=== PATIENT | male | born 1955 | race African-American/Black ===

== ENCOUNTER 2021-06-09 05:19 | Emergency (ER) | payer BC, OTHER ==
[~2021-06-09] VITALS: Ht 180.3 cm; Wt 123.0 kg
[~2021-06-09 05:19] MED LIST: ASPI-1406; ATEN-42; DOCU100C57; FURO-151; GEMF600T; HYDR12.529; KETO200S3; LANC-335; LORA10CA; MELO-106; MELO15TA13; METH500T; NIFE30TA94; OLME20TA13; PROT40; SIMV40TA2; SITA1TAB8; VIAG100; [UNRECOGNIZED DRUG - CODE]
[2021-06-09 06:32] LABS: EOSINOPHILS % 3.3 % (0.0-5.0); HEMATOCRIT. 37.9 % (42.0-52.0); HEMOGLOBIN. 12.8 g/dL (14.0-18.0); MEAN CORPUSCULAR HEMOGLOBIN 31.4 pg (28.0-32.0); MEAN PLATELET VOLUME 6.7 fl (7.4-10.4); MONOCYTES % 5.3 % (2.0-8.0); NEUTROPHILS % 70.4 % (40.0-76.0); PLATELET 450 x1000/uL (130-400); RED BLOOD CELL COUNT 4.08 mill/uL (4.7-6.1); RED CELL DISTRIBUTION WIDTH 13.8 % (11.6-14.6)
[2021-06-09 06:36] LABS: CHLORIDE 98 mEq/L (98-107)
[2021-06-09 08:49] VITALS: BP 114/61
== END 2021-06-09 09:00 | disposition home or self-care (01) ==
LOC: ER 05:19
DX: E11.621 Type 2 diabetes mellitus with foot ulcer (principal); L97.529 Non-pressure chronic ulcer of other part of left foot with unspecified severity; Z79.4 Long term (current) use of insulin
CPT/HCPCS: 36415; 73630; 80053; 85025; 99284

== ENCOUNTER 2023-10-31 11:47 | Inpatient (IN) | payer MEDICARE, BC ==
[~2023-10-31] VITALS: Ht 181.6 cm; Wt 128.8 kg
[~2023-10-31 11:47] MED LIST changes: +ALLO100T PO; +ASCO500C18 PO; -ASPI-1406; -ATEN-42; +ATOR40TA70 PO; +COR25 PO; +DAPA10TA PO; -DOCU100C57; +EZET10TA81 PO; -FURO-151; +FURO-151 PO; -GEMF600T; +GLUC-113 PO; -HYDR12.529; -KETO200S3; -LANC-335; -LORA10CA; +LOSA25TA26 PO; -MELO-106; -MELO15TA13; +METF-414 PO; -METH500T; -NIFE30TA94; -OLME20TA13; +OMEG100017 PO; -PROT40; +RIVA20TA PO; -SIMV40TA2; -SITA1TAB8; +SPIR25TA6 PO; +TIRZ2.5P; -VIAG100; -[UNRECOGNIZED DRUG - CODE]
[2023-10-31 11:50] VITALS: O2SAT 98
[2023-10-31] MEDS: DILTIAZEM HCL 5MG/ML 5ML VIAL IV ONE (12:25)
[2023-10-31] MEDS: DILTIAZEM HCL 60MG TABLET PO ONE (12:34)
[2023-10-31 12:55] LABS: BASOPHILS % 0.6 % (0.0-2.0); HEMATOCRIT. 28.7 % (42.0-52.0); HEMOGLOBIN. 9.2 g/dL (14.0-18.0); LYMPHOCYTES % 12.9 % (20.0-50.0); MEAN CORPUSCULAR HEMOGLOBIN 30.2 pg (28.0-32.0); MEAN CORPUSCULAR VOLUME 94.4 fL (80.0-94.0); MONOCYTES % 11.5 % (2.0-8.0); PLATELET 455 x1000/uL (130-400); RED BLOOD CELL COUNT 3.04 mill/uL (4.7-6.1); RED CELL DISTRIBUTION WIDTH 21.5 % (11.6-14.6); WHITE BLOOD COUNT 7.6 x1000/uL (4.5-11.0)
[2023-10-31 13:04] LABS: ALANINE AMINOTRANSFERASE 97 IU/L (10-49); ALBUMIN 3.1 g/dL (3.2-4.8); ASPARTATE AMINOTRANSFERASE 223 IU/L (<34); BILIRUBIN TOTAL 4.2 mg/dL (0.1-1.0); CALCIUM 8.5 mg/dL (8.7-10.4); CARBON DIOXIDE 17 mEq/L (21-32); CHLORIDE 98 mEq/L (98-107); GLUCOSE 218 mg/dL (70-105); POTASSIUM 5.1 mEq/L (3.5-5.1); PROTEIN TOTAL 6.7 g/dL (6.0-8.3); SODIUM 126 mEq/L (136-145); TROPONIN I HIGH SENSITIVITY 29 ng/L (3.0-53); UREA NITROGEN BLOOD 48 mg/dL (9-23)
[2023-10-31 13:28] LABS: CREATININE 1.3 mg/dL (0.6-1.3)
[2023-10-31] MEDS ORDERED: NALOXONE HCL 0.4MG/ML VIAL IV PRN (13:45)
[2023-10-31] MEDS: DIGOXIN 500MCG/2ML AMP IV NR (13:57)
[2023-10-31] MEDS: ENOXAPARIN 40MG/0.4ML SYR SUBCUT SCH (13:58)
[2023-10-31] MEDS ORDERED: DILTIAZEM HCL 125 MG in DEXT 5% WATER 100 ML IV SCH (14:00)
[2023-10-31] MEDS: DILTIAZEM HCL 125 MG in DEXT 5% WATER 100 ML IV SCH (14:00)
[2023-10-31] MEDS: THIAMINE HCL 100MG TABLET PO SCH (14:10)
[2023-10-31] MEDS: FERROUS SULFATE 325MG TABLET PO SCH (14:20)
[2023-10-31 14:50] LABS: AMMONIA 33 uMol/L (<32)
[2023-10-31 14:51] LABS: CREATINE KINASE MB FRACTION 2.9 ng/mL (0.5-3.6)
[2023-10-31] MEDS: MORPHINE SULFATE 2 MG/ML CPJ (NOT FOR IM USE) IV PRN (15:26)
[2023-11-01] VITALS (12 sets, daily range): BP systolic 108–141; BP diastolic 59–97; PULSE 102–126; RESP 11–35; TEMP 98.2–98.9
[2023-11-01 04:24] LABS: CLARITY URINE TURBID (CLEAR); COLOR URINE DARK YELLOW (YELLOW); GLUCOSE URINE TRACE (NEGATIVE); KETONES URINE NEGATIVE (NEGATIVE); LEUKOCYTE ESTERASE URINE NEGATIVE (NEGATIVE); NITRITE URINE NEGATIVE (NEGATIVE); OCCULT BLOOD URINE NEGATIVE (NEGATIVE); PROTEIN URINE 1+ (NEGATIVE); SPECIFIC GRAVITY URINE 1.017 (1.005-1.030)
[2023-11-01 04:42] LABS: *AMPHETAMINES SCREEN URINE NEGATIVE (NEGATIVE); *BARBITURATES SCREEN URINE NEGATIVE (NEGATIVE); *BENZODIAZEPINES SCREEN URINE NEGATIVE (NEGATIVE); *COCAINE SCREEN URINE NEGATIVE (NEGATIVE); CANNABINOID URINE SCREEN NEGATIVE (NEGATIVE); ECSTASY MDMA SCREEN URINE NEGATIVE (NEGATIVE); METHADONE URINE SCREEN Neg (NEGATIVE); OPIATES URINE SCREEN PRESUMPTIVE POSITIVE (NEGATIVE); PHENCYCLIDINE URINE SCREEN NEGATIVE (NEGATIVE)
[2023-11-01 04:52] LABS: WBC URINE NONE SEEN /hpf (0-2)
[2023-11-01 04:53] LABS: AMORPHOUS SEDIMENT URINE 1+ /lpf; BACTERIA URINE 1+; RBC URINE NONE SEEN /hpf (0-2); SQUAMOUS EPITHELIAL CELL URINE NONE SEEN /lpf (RARE/1+)
[2023-11-01 06:57] LABS: BASOPHILS % 0.4 % (0.0-2.0); EOSINOPHILS % 1.1 % (0.0-5.0); HEMATOCRIT. 27.4 % (42.0-52.0); LYMPHOCYTES % 19.9 % (20.0-50.0); MEAN CORPUSCULAR HEMOGLOBIN 30.9 pg (28.0-32.0); MEAN CORPUSCULAR HGB CONC 32.9 g/dL (31.0-37.0); MEAN CORPUSCULAR VOLUME 93.7 fL (80.0-94.0); MEAN PLATELET VOLUME 7.1 fl (7.4-10.4); NEUTROPHILS % 68.6 % (40.0-76.0); PLATELET 444 x1000/uL (130-400); RED BLOOD CELL COUNT 2.92 mill/uL (4.7-6.1); RED CELL DISTRIBUTION WIDTH 21.3 % (11.6-14.6); WHITE BLOOD COUNT 8.2 x1000/uL (4.5-11.0)
[2023-11-01 06:58] LABS: ALANINE AMINOTRANSFERASE 111 IU/L (10-49); ALBUMIN 3.1 g/dL (3.2-4.8); ASPARTATE AMINOTRANSFERASE 321 IU/L (<34); BILIRUBIN DIRECT 3.6 mg/dL (<=3.0); BILIRUBIN TOTAL 4.6 mg/dL (0.1-1.0); CALCIUM 8.7 mg/dL (8.7-10.4); CARBON DIOXIDE 16 mEq/L (21-32); CHLORIDE 100 mEq/L (98-107); CREATININE 1.2 mg/dL (0.6-1.3); GLUCOSE 172 mg/dL (70-105); PHOSPHORUS 3.9 mg/dL (2.5-4.9); POTASSIUM 5.2 mEq/L (3.5-5.1); PROTEIN TOTAL 6.8 g/dL (6.0-8.3); SODIUM 127 mEq/L (136-145); THYROID STIMULATING HORMONE 3.71 uIU/mL (0.55-4.78); TROPONIN I HIGH SENSITIVITY 34 ng/L (3.0-53); UREA NITROGEN BLOOD 49 mg/dL (9-23)
[2023-11-01 07:15] LABS: DIFFERENTIAL COMMENT 1
[2023-11-01 07:50] LABS: HEPATITIS B SURFACE ANTIGEN NEGATIVE (Negative); HEPATITIS C AB NON REACTIVE (Neg) (Negative)
[2023-11-01] MEDS: SODIUM POLYSTYRENE SULFONATE 15 G/60 ML BOT PO NR (10:18)
[2023-11-01] MEDS: ASPIRIN 81MG EC TABLET PO SCH (10:19)
[2023-11-01] MEDS: DILTIAZEM HCL 60MG TABLET PO SCH (13:26)
[2023-11-01] MEDS: DILTIAZEM HCL 125 MG in DEXT 5% WATER 100 ML IV SCH (14:41)
[2023-11-01 16:20] LABS: CREATINE KINASE 805 IU/L (46-171); CREATINE KINASE MB FRACTION 2.4 ng/mL (0.5-3.6); TROPONIN I HIGH SENSITIVITY 27 ng/L (3.0-53)
[2023-11-02] VITALS (14 sets, daily range): BP systolic 95–132; BP diastolic 61–98; PULSE 83–118; RESP 19–34; TEMP 97–98.5
[2023-11-02 07:25] LABS: CALCIUM 8.4 mg/dL (8.7-10.4); CARBON DIOXIDE 20 mEq/L (21-32); CHLORIDE 97 mEq/L (98-107); CREATININE 1.2 mg/dL (0.6-1.3); GLUCOSE 181 mg/dL (70-105); POTASSIUM 4.6 mEq/L (3.5-5.1); SODIUM 127 mEq/L (136-145); UREA NITROGEN BLOOD 48 mg/dL (9-23)
[2023-11-02 07:41] LABS: HEMATOCRIT. 27.4 % (42.0-52.0); HEMOGLOBIN. 9.1 g/dL (14.0-18.0); MEAN CORPUSCULAR HEMOGLOBIN 30.7 pg (28.0-32.0); MEAN CORPUSCULAR HGB CONC 33.4 g/dL (31.0-37.0); MEAN CORPUSCULAR VOLUME 91.8 fL (80.0-94.0); MEAN PLATELET VOLUME 7.4 fl (7.4-10.4); PLATELET 391 x1000/uL (130-400); RED BLOOD CELL COUNT 2.98 mill/uL (4.7-6.1); RED CELL DISTRIBUTION WIDTH 21.5 % (11.6-14.6); WHITE BLOOD COUNT 8.1 x1000/uL (4.5-11.0)
[2023-11-02 08:57] LABS: DIFFERENTIAL COMMENT 1
[2023-11-02] MEDS: DILTIAZEM HCL 30MG TABLET PO SCH (14:00)
[2023-11-02 22:42] LABS: ANISOCYTOSIS 2+; PLATELET ESTIMATE NORMAL
[2023-11-03] VITALS (12 sets, daily range): BP systolic 97–125; BP diastolic 59–92; PULSE 80–126; RESP 14–26; TEMP 97–97.8
[2023-11-03 00:26] LABS: SODIUM URINE RANDOM < 10 mEq/L
[2023-11-03 05:45] LABS: HEMATOCRIT. 27.6 % (42.0-52.0); HEMOGLOBIN. 9.1 g/dL (14.0-18.0); MEAN CORPUSCULAR HEMOGLOBIN 30.1 pg (28.0-32.0); MEAN CORPUSCULAR HGB CONC 33.1 g/dL (31.0-37.0); MEAN CORPUSCULAR VOLUME 90.9 fL (80.0-94.0); PLATELET 375 x1000/uL (130-400); RED BLOOD CELL COUNT 3.04 mill/uL (4.7-6.1); RED CELL DISTRIBUTION WIDTH 21.4 % (11.6-14.6); WHITE BLOOD COUNT 8.4 x1000/uL (4.5-11.0)
[2023-11-03 06:02] LABS: CALCIUM 8.3 mg/dL (8.7-10.4); CARBON DIOXIDE 20 mEq/L (21-32); CHLORIDE 97 mEq/L (98-107); CREATININE 1.1 mg/dL (0.6-1.3); GLUCOSE 170 mg/dL (70-105); POTASSIUM 4.5 mEq/L (3.5-5.1); SODIUM 127 mEq/L (136-145); UREA NITROGEN BLOOD 49 mg/dL (9-23)
[2023-11-03 06:53] LABS: DIFFERENTIAL COMMENT 1
[2023-11-03] MEDS: ACETAMINOPHEN 325MG TABLET PO PRN (09:55)
[2023-11-03] MEDS: DILTIAZEM HCL 60MG TABLET PO SCH (13:28)
[2023-11-03 18:55] LABS: HEPATITIS A AB IGM NEGATIVE (Negative); HEPATITIS B CORE AB IGM NEGATIVE (Negative); HEPATITIS B SURFACE ANTIGEN NEGATIVE (Negative); HEPATITIS C AB NON REACTIVE (Neg) (Negative)
[2023-11-04] VITALS (12 sets, daily range): BP systolic 103–125; BP diastolic 62–94; PULSE 79–98; RESP 16–31; TEMP 97–98.2
[2023-11-04] MEDS ORDERED: MAGNESIUM/ALUMINUM HYDROXIDE/SIMETHICONE 30ML UDC PO PRN (10:45)
[2023-11-04] MEDS ORDERED: NON FORMULARY PATIENT HOME MED XX SCH (11:30)
[2023-11-04] MEDS: PANTOPRAZOLE 40MG DR TABLET PO SCH (11:30)
[2023-11-04] MEDS: BISACODYL 5MG TABLET PO SCH (11:30)
[2023-11-04] MEDS: SODIUM CHLORIDE 0.9% 1,000 ML IV SCH (11:31)
[2023-11-04 14:31] LABS: PLATELET ESTIMATE NORMAL
[2023-11-04 14:33] LABS: ANISOCYTOSIS 1+
[2023-11-04] MEDS: LIDOCAINE 5% PATCH TOP SCH (15:25)
[2023-11-04] MEDS: LACTULOSE 20G/30ML UDC PO SCH (15:28)
[2023-11-04] MEDS: DOCUSATE SODIUM 100MG CAPSULE PO SCH (17:02)
[2023-11-04 22:38] LABS: IRON 37 ug/dL (65-175); TOTAL IRON BINDING CAPACITY 486 ug/dl (250-425)
[2023-11-05] VITALS (12 sets, daily range): BP systolic 109–148; BP diastolic 66–107; PULSE 85–108; RESP 16–37; TEMP 97.5–97.9
[2023-11-05 07:19] LABS: AMMONIA 32 uMol/L (<32)
[2023-11-05 07:45] LABS: INR 1.4; PARTIAL THROMBOPLASTIN TIME 35.4 sec (23.4-31.0); PROTHROMBIN TIME 14.7 sec (9.6-11.0)
[2023-11-05 07:51] LABS: ALANINE AMINOTRANSFERASE 84 IU/L (10-49); ALBUMIN 3.2 g/dL (3.2-4.8); ASPARTATE AMINOTRANSFERASE 158 IU/L (<34); BILIRUBIN DIRECT 4.4 mg/dL (<=3.0); BILIRUBIN TOTAL 5.4 mg/dL (0.1-1.0); IRON 29 ug/dL (65-175); PROTEIN TOTAL 6.7 g/dL (6.0-8.3); THYROID STIMULATING HORMONE 2.81 uIU/mL (0.55-4.78); TOTAL IRON BINDING CAPACITY 297 ug/dl (250-425)
[2023-11-05] MEDS: POLYETHYLENE GLYCOL 3350 (17GM) 1 DOSE PACK PO SCH (08:19)
[2023-11-05] MEDS: THIAMINE HCL 100MG TABLET PO SCH (08:21)
[2023-11-05] MEDS: FOLIC ACID 1MG TABLET PO SCH (08:21)
[2023-11-05 08:40] LABS: FERRITIN 1331 ng/mL (22-322); FOLIC ACID (FOLATE) SERUM 11.74 ng/mL (>5.38)
[2023-11-05 08:56] LABS: VITAMIN B12 SERUM > 2000 pg/mL (211-911)
[2023-11-05] MEDS: ONDANSETRON HCL 4MG/2ML INJ IV PRN (21:55)
[2023-11-06] VITALS (12 sets, daily range): BP systolic 99–148; BP diastolic 39–104; PULSE 82–103; RESP 13–38; TEMP 97–97.7
[2023-11-06 05:52] LABS: INR 1.4; PROTHROMBIN TIME 14.8 sec (9.6-11.0)
[2023-11-06 06:00] LABS: ALANINE AMINOTRANSFERASE 77 IU/L (10-49); ALBUMIN 3.1 g/dL (3.2-4.8); ASPARTATE AMINOTRANSFERASE 136 IU/L (<34); BILIRUBIN TOTAL 5.5 mg/dL (0.1-1.0); CALCIUM 8.1 mg/dL (8.7-10.4); CARBON DIOXIDE 17 mEq/L (21-32); CHLORIDE 96 mEq/L (98-107); GLUCOSE 183 mg/dL (70-105); PROTEIN TOTAL 6.3 g/dL (6.0-8.3); SODIUM 126 mEq/L (136-145); UREA NITROGEN BLOOD 59 mg/dL (9-23)
[2023-11-06 06:13] LABS: CREATININE 1.7 mg/dL (0.6-1.3)
[2023-11-06 06:18] LABS: HEMATOCRIT. 29.6 % (42.0-52.0); HEMOGLOBIN. 9.7 g/dL (14.0-18.0); MEAN CORPUSCULAR HEMOGLOBIN 30.6 pg (28.0-32.0); MEAN CORPUSCULAR HGB CONC 32.8 g/dL (31.0-37.0); MEAN CORPUSCULAR VOLUME 93.5 fL (80.0-94.0); MEAN PLATELET VOLUME 7.2 fl (7.4-10.4); PLATELET 405 x1000/uL (130-400); RED BLOOD CELL COUNT 3.17 mill/uL (4.7-6.1); RED CELL DISTRIBUTION WIDTH 21.6 % (11.6-14.6); WHITE BLOOD COUNT 8.3 x1000/uL (4.5-11.0)
[2023-11-06 07:02] LABS: DIFFERENTIAL COMMENT 1
[2023-11-06 07:11] LABS: ALPHA FETOPROTEIN TUMOR MARKER < 1.8 ng/mL (0.0-8.4); CA 19-9 80 U/mL (0-35); PROSTATE SPECIFIC AG TOTAL 0.9 ng/mL (0.0-4.0)
[2023-11-06 08:08] LABS: PROSTATE SPECIFIC AG TOTAL 0.9 ng/mL (0.0-4.0); VITAMIN D 25-OH 24.2 ng/mL (30.0-100.0)
[2023-11-06] MEDS: ENOXAPARIN 30MG/0.3ML SYR SUBCUT SCH (14:09)
[2023-11-06] MEDS: ERGOCALCIFEROL 50000UNITS CAPSULE PO SCH (17:47)
[2023-11-06 17:57] LABS: ANISOCYTOSIS 2+; PLATELET ESTIMATE INCREASED
[2023-11-07] VITALS (12 sets, daily range): BP systolic 95–134; BP diastolic 13–94; PULSE 81–90; RESP 0–29; TEMP 96.5–97.7
[2023-11-07 05:53] LABS: INR 1.4; PROTHROMBIN TIME 15.2 sec (9.6-11.0)
[2023-11-07 06:17] LABS: ALANINE AMINOTRANSFERASE 75 IU/L (10-49); ALBUMIN 3.1 g/dL (3.2-4.8); ASPARTATE AMINOTRANSFERASE 132 IU/L (<34); BILIRUBIN TOTAL 5.4 mg/dL (0.1-1.0); CALCIUM 8.2 mg/dL (8.7-10.4); CARBON DIOXIDE 17 mEq/L (21-32); CHLORIDE 98 mEq/L (98-107); CREATININE 1.8 mg/dL (0.6-1.3); GLUCOSE 167 mg/dL (70-105); PROTEIN TOTAL 6.5 g/dL (6.0-8.3); SODIUM 127 mEq/L (136-145); UREA NITROGEN BLOOD 55 mg/dL (9-23)
[2023-11-07 07:54] LABS: HEMATOCRIT. 30.8 % (42.0-52.0); MEAN CORPUSCULAR HEMOGLOBIN 29.9 pg (28.0-32.0); MEAN CORPUSCULAR HGB CONC 32.5 g/dL (31.0-37.0); MEAN PLATELET VOLUME 7.2 fl (7.4-10.4); PLATELET 412 x1000/uL (130-400); RED BLOOD CELL COUNT 3.34 mill/uL (4.7-6.1); RED CELL DISTRIBUTION WIDTH 21.9 % (11.6-14.6); WHITE BLOOD COUNT 9.4 x1000/uL (4.5-11.0)
[2023-11-07 08:04] LABS: DIFFERENTIAL COMMENT 1
[2023-11-07 12:32] LABS: PLATELET ESTIMATE NORMAL
[2023-11-07 12:33] LABS: ANISOCYTOSIS 1+
[2023-11-07] MEDS: FUROSEMIDE 40MG/4ML VIAL IVP SCH (14:33)
[2023-11-07] MEDS: DILTIAZEM HCL 30MG TABLET PO SCH (17:42)
[2023-11-08] VITALS (15 sets, daily range): BP systolic 121–151; BP diastolic 68–103; PULSE 78–94; RESP 15–37; TEMP 97–98
[2023-11-08 06:23] LABS: MEAN CORPUSCULAR HEMOGLOBIN 30.1 pg (28.0-32.0); MEAN CORPUSCULAR HGB CONC 32.4 g/dL (31.0-37.0); MEAN PLATELET VOLUME 7.3 fl (7.4-10.4); PLATELET 404 x1000/uL (130-400); RED BLOOD CELL COUNT 3.34 mill/uL (4.7-6.1); RED CELL DISTRIBUTION WIDTH 21.8 % (11.6-14.6); WHITE BLOOD COUNT 8.7 x1000/uL (4.5-11.0)
[2023-11-08 06:24] LABS: DIFFERENTIAL COMMENT 1
[2023-11-08 06:31] LABS: INR 1.5; PROTHROMBIN TIME 15.5 sec (9.6-11.0)
[2023-11-08 06:36] LABS: ALANINE AMINOTRANSFERASE 71 IU/L (10-49); ASPARTATE AMINOTRANSFERASE 131 IU/L (<34); BILIRUBIN TOTAL 5.4 mg/dL (0.1-1.0); CARBON DIOXIDE 18 mEq/L (21-32); CHLORIDE 101 mEq/L (98-107); CREATININE 1.6 mg/dL (0.6-1.3); GLUCOSE 149 mg/dL (70-105); PROTEIN TOTAL 6.5 g/dL (6.0-8.3); SODIUM 131 mEq/L (136-145); UREA NITROGEN BLOOD 62 mg/dL (9-23)
[2023-11-08] MEDS: PHYTONADIONE 10MG/ML INJ SUBCUT NR (13:53)
[2023-11-08 14:30] LABS: NUCLEATED RED BLOOD CELLS 1 /100 WBC; PLATELET ESTIMATE SLIGHTLY INCREASED
[2023-11-08 14:31] LABS: ANISOCYTOSIS 2+
[2023-11-08] MEDS ORDERED: NALOXONE HCL 0.4MG/ML VIAL IV PRN (19:00)
[2023-11-08] MEDS: MORPHINE SULFATE 2 MG/ML CPJ (NOT FOR IM USE) IV PRN (20:50)
[2023-11-09] VITALS (19 sets, daily range): BP systolic 96–159; BP diastolic 49–101; PULSE 82–90; RESP 13–30; TEMP 96–98.4
[2023-11-09] MEDS ORDERED: LIDOCAINE HCL 1% 10 MG/ML 10ML VIAL ONE ×2 (06:54→09:40)
[2023-11-09 07:49] LABS: HEMATOCRIT. 32.3 % (42.0-52.0); HEMOGLOBIN. 10.5 g/dL (14.0-18.0); MEAN CORPUSCULAR HGB CONC 32.4 g/dL (31.0-37.0); MEAN CORPUSCULAR VOLUME 95.6 fL (80.0-94.0); MEAN PLATELET VOLUME 7.4 fl (7.4-10.4); PLATELET 403 x1000/uL (130-400); RED BLOOD CELL COUNT 3.38 mill/uL (4.7-6.1); WHITE BLOOD COUNT 9.8 x1000/uL (4.5-11.0)
[2023-11-09 08:05] LABS: INR 1.2; PROTHROMBIN TIME 13.7 sec (9.6-11.0)
[2023-11-09 08:08] LABS: ALANINE AMINOTRANSFERASE 84 IU/L (10-49); ALBUMIN 3.1 g/dL (3.2-4.8); ASPARTATE AMINOTRANSFERASE 198 IU/L (<34); BILIRUBIN TOTAL 5.6 mg/dL (0.1-1.0); CALCIUM 8.2 mg/dL (8.7-10.4); CARBON DIOXIDE 16 mEq/L (21-32); CHLORIDE 103 mEq/L (98-107); CREATININE 1.3 mg/dL (0.6-1.3); GLUCOSE 141 mg/dL (70-105); POTASSIUM 5.5 mEq/L (3.5-5.1); PROTEIN TOTAL 6.7 g/dL (6.0-8.3); SODIUM 131 mEq/L (136-145); UREA NITROGEN BLOOD 57 mg/dL (9-23)
[2023-11-09 08:40] LABS: DIFFERENTIAL COMMENT 1
[2023-11-09] MEDS ORDERED: DILT30TA37 PO (12:00)
[2023-11-09] MEDS: SODIUM POLYSTYRENE SULFONATE 15 G/60 ML BOT PO NR (12:07)
[2023-11-09 12:44] LABS: HEMOGLOBIN 9.7 g/dL (14.0-18.0)
[2023-11-09 16:27] LABS: PLATELET ESTIMATE NORMAL
[2023-11-10] VITALS (9 sets, daily range): BP systolic 90–137; BP diastolic 52–100; PULSE 87–95; RESP 13–31; TEMP 97.2–98.6
[2023-11-10 07:45] LABS: INR 1.3
[2023-11-10 08:00] LABS: HEMATOCRIT. 32.6 % (42.0-52.0); HEMOGLOBIN. 10.5 g/dL (14.0-18.0); MEAN CORPUSCULAR HEMOGLOBIN 30.6 pg (28.0-32.0); MEAN CORPUSCULAR HGB CONC 32.2 g/dL (31.0-37.0); MEAN PLATELET VOLUME 7.1 fl (7.4-10.4); PLATELET 405 x1000/uL (130-400); RED BLOOD CELL COUNT 3.43 mill/uL (4.7-6.1); RED CELL DISTRIBUTION WIDTH 22.3 % (11.6-14.6); WHITE BLOOD COUNT 10.5 x1000/uL (4.5-11.0)
[2023-11-10 08:08] LABS: ALANINE AMINOTRANSFERASE 121 IU/L (10-49); ALBUMIN 3.2 g/dL (3.2-4.8); ASPARTATE AMINOTRANSFERASE 367 IU/L (<34); BILIRUBIN DIRECT 5.2 mg/dL (<=3.0); BILIRUBIN TOTAL 6.3 mg/dL (0.1-1.0); CALCIUM 8.3 mg/dL (8.7-10.4); CARBON DIOXIDE 19 mEq/L (21-32); CHLORIDE 102 mEq/L (98-107); CREATININE 1.3 mg/dL (0.6-1.3); GLUCOSE 180 mg/dL (70-105); POTASSIUM 5.2 mEq/L (3.5-5.1); PROTEIN TOTAL 6.8 g/dL (6.0-8.3); SODIUM 132 mEq/L (136-145); UREA NITROGEN BLOOD 62 mg/dL (9-23)
[2023-11-10 08:28] LABS: DIFFERENTIAL COMMENT 1
[2023-11-10 14:29] LABS: ANISOCYTOSIS 2+; PLATELET ESTIMATE SLIGHTLY INCREASED
== END 2023-11-10 16:47 | DRG 435 ==
LOC: ER 11:47 → 5EST 12:54 → EDBEDREQ 12:56 → EDBEDREQTM 12:56 → EDBEDREQSVC 16:58 → 5EST 11-04 18:28
PROVIDERS: ADMIT Internal Medicine Nephrology; ATTEND Internal Medicine Nephrology
PROC: 0W9G3ZZ Drainage of Peritoneal Cavity, Percutaneous Approach (ICD-10-PCS; principal; 2023-11-09)
PROC: 0FB03ZX Excision of Liver, Percutaneous Approach, Diagnostic (ICD-10-PCS; 2023-11-09)
DX: C78.7 Secondary malignant neoplasm of liver and intrahepatic bile duct (principal); E43 Unspecified severe protein-calorie malnutrition; G93.41 Metabolic encephalopathy; J96.01 Acute respiratory failure with hypoxia; E87.1 Hypo-osmolality and hyponatremia; M62.82 Rhabdomyolysis; N17.9 Acute kidney failure, unspecified; R18.8 Other ascites; D68.9 Coagulation defect, unspecified; C34.11 Malignant neoplasm of upper lobe, right bronchus or lung; C34.32 Malignant neoplasm of lower lobe, left bronchus or lung; R64 Cachexia; I42.9 Cardiomyopathy, unspecified; I48.0 Paroxysmal atrial fibrillation; E66.9 Obesity, unspecified; E78.00 Pure hypercholesterolemia, unspecified; E87.5 Hyperkalemia; G47.33 Obstructive sleep apnea (adult) (pediatric); I11.0 Hypertensive heart disease with heart failure; I25.10 Atherosclerotic heart disease of native coronary artery without angina pectoris; I34.0 Nonrheumatic mitral (valve) insufficiency; K74.60 Unspecified cirrhosis of liver; G62.9 Polyneuropathy, unspecified; I50.9 Heart failure, unspecified; G89.29 Other chronic pain; R26.9 Unspecified abnormalities of gait and mobility; K72.90 Hepatic failure, unspecified without coma; F17.210 Nicotine dependence, cigarettes, uncomplicated; E11.65 Type 2 diabetes mellitus with hyperglycemia; F10.20 Alcohol dependence, uncomplicated; R74.01 Elevation of levels of liver transaminase levels; D63.8 Anemia in other chronic diseases classified elsewhere; E55.9 Vitamin D deficiency, unspecified; I25.2 Old myocardial infarction; Z79.01 Long term (current) use of anticoagulants; Z79.899 Other long term (current) drug therapy; Z82.49 Family history of ischemic heart disease and other diseases of the circulatory system; Z68.39 Body mass index [BMI] 39.0-39.9, adult; Z79.4 Long term (current) use of insulin
CPT/HCPCS: 36415; 49083; 71045; 71101; 71260; 72148; 74177; 76700; 76942; 80048; 80053; 80076; 80305; 81003; 82105; 82140; 82270; 82306; 82378; 82550; 82553; 82570; 82607; 82728; 82746; 83036; 83540; 83550; 83735; 83880; 84100; 84153; 84300; 84443; 84484; 85014; 85018; 85025; 86301; 86304; 86705; 86709; 87340; 88307; 93005; 93970; 97162; 97166; 99285; J1160; J1650; J1940; J2270; J2405; J3430; J3490; J7030; J7060